=== PATIENT | male | born 1995 | race African-American/Black ===

== ENCOUNTER 2017-09-22 20:44 | Emergency (ER) | payer BC, MEDICAID ==
[~2017-09-22] VITALS: Ht 190.5 cm; Wt 79.4 kg
[2017-09-22 20:48] VITALS: BP 136/55
[2017-09-22] MEDS ORDERED: ACETAMINOPHEN 325 MG TABLET ONE (21:14)
[2017-09-22] MEDS ORDERED: ACETAMINOPHEN 650 MG/20.3 ML UDC PO ONE (21:30)
== END 2017-09-22 22:23 | disposition home or self-care (01) ==
LOC: ER 20:48
DX: G43.909 Migraine, unspecified, not intractable, without status migrainosus (principal); F31.9 Bipolar disorder, unspecified; F17.200 Nicotine dependence, unspecified, uncomplicated; F12.10 Cannabis abuse, uncomplicated
CPT/HCPCS: 70450-TC; A4606; Z7610

== ENCOUNTER 2024-09-28 20:35 | Emergency (ER) | payer BC, MEDICAID, OTHER | END 2024-09-28 22:03 | disposition left against medical advice (07) | LOC: ER 20:56 | DX: F99 Mental disorder, not otherwise specified (principal); Z53.21 Procedure and treatment not carried out due to patient leaving prior to being seen by health care provider ==

== ENCOUNTER 2024-10-13 06:48 | Emergency (ER) | payer MEDICAID ==
[~2024-10-13] VITALS: Ht 182.9 cm; Wt 81.6 kg
[2024-10-13 08:09] LABS: PLATELET COUNT (AUTO) 241 K/uL (150-450); RED BLOOD CELL COUNT(AUTO) 4.66 MIL/uL (4.5-6.0); RED CELL DISTRIBUTION WIDTH 13.8 % (11.5-15.0); WHITE BLOOD COUNT (AUTO) 12.3 K/uL (4.3-11.0)
[2024-10-13 08:13] LABS: BLOOD, URINE NEGATIVE Ery/uL (NEGATIVE); LEUKOCYTE ESTERASE ,URINE NEGATIVE (NEGATIVE); NITRITE, URINE NEGATIVE (NEGATIVE); UGLUCOSE NEGATIVE (NEGATIVE)
[2024-10-13 08:17] LABS: APPEARANCE,URINE CLEAR (CLEAR)
[2024-10-13 08:26] LABS: ASPARTATE AMINOTRANSFERASE 33 U/L (15-37); CALCIUM, SERUM 8.9 mg/dL (8.5-10.1); CREATININE 1.0 mg/dL (0.6-1.3); SODIUM SERUM 139 mmol/L (136-145); TOTAL PROTEIN, SERUM 8.0 g/dL (6.4-8.2); UREA NITROGEN, BLOOD 20 mg/dL (7-18)
[2024-10-13 08:27] LABS: AMPHETAMINE, URINE NEGATIVE (NEGATIVE); BARBITURATE, URINE NEGATIVE (NEGATIVE); BENZODIAZEPINE, URINE NEGATIVE (NEGATIVE); CANNABINOID, URINE NEGATIVE (NEGATIVE); COCCAINE, URINE NEGATIVE (NEGATIVE); OPIATE, URINE NEGATIVE (NEGATIVE)
[2024-10-13 08:42] LABS: ALCOHOL, BLOOD < 3 mg/dL (0-10)
[2024-10-13 09:02] LABS: ADD URINE CULTURE NO; SQUAMOUS EPITHELIAL CELL,UR 0-2 /HPF (None Seen)
[2024-10-13] MEDS ORDERED: NALO4SPR BNOSTRILS (09:22)
[2024-10-13] MEDS: OLANZAPINE 10 MG VIAL IM ONE (13:10)
[2024-10-13] MEDS: TDAP [DIPH/PERTUSSIS/TET] 0.5 ML VIAL IM ONE (13:10)
[2024-10-13] MEDS ORDERED: OLANZAPINE 10 MG VIAL IM ONE (13:15)
[2024-10-13] MEDS ORDERED: TDAP [DIPH/PERTUSSIS/TET] 0.5 ML VIAL IM ONE (13:15)
[2024-10-13 13:32] VITALS: BP 133/75; TEMP 98.2; O2SAT 99
== END 2024-10-13 14:25 ==
LOC: ER 06:54
DX: R44.0 Auditory hallucinations (principal); S51.811A Laceration without foreign body of right forearm, initial encounter; S51.012A Laceration without foreign body of left elbow, initial encounter; F31.9 Bipolar disorder, unspecified; F17.200 Nicotine dependence, unspecified, uncomplicated; Z20.822 Contact with and (suspected) exposure to COVID-19; X58.XXXA Exposure to other specified factors, initial encounter; Y93.89 Activity, other specified; Y92.89 Other specified places as the place of occurrence of the external cause; Y99.8 Other external cause status
CPT/HCPCS: 12001; 36415; 73070; 73110; 80048; 80076; 80143; 80307; 80320; 81001; 85025; 87426; 90471; 90715; 96372; 99285; J3490; G0480